=== PATIENT | female | born 1945 | race Caucasian/White ===

== ENCOUNTER → 2018-01-08 | Day surgery (SDC) | payer MEDICARE ==
[2018-01-03 13:30] LABS: BASOPHILS # (AUTO) 0.1 (0.0-0.1); BASOPHILS % 0.5 % (0.0-1.0); EOSINOPHILS # (AUTO) 0.2 (0.0-0.4); EOSINOPHILS % 2.6 % (0.0-6.0); HEMATOCRIT 41.3 % (34.2-44.1); HEMOGLOBIN 12.9 g/dL (12.0-16.0); LYMPHOCYTES # (AUTO) 3.1 (1.0-3.2); LYMPHOCYTES % 33.4 % (18.0-39.1); MEAN CORPUSCULAR HEMOGLOBIN 27.9 pg (28-32); MEAN CORPUSCULAR HGB CONC 31.2 g/dL (31-35); MEAN CORPUSCULAR VOLUME 89.2 fL (81-99); MONOCYTES # (AUTO) 0.7 (0.2-0.8); MONOCYTES % 7.2 % (4.4-11.3); NEUTROPHILS # (AUTO) 5.1 (2.1-6.9); PLATELET COUNT 227 x10e3/uL (140-360); RED BLOOD COUNT 4.63 x10e6/uL (3.6-5.1); RED CELL DISTRIBUTION WIDTH 13.7 % (11.7-14.4)
[~2018-01-08] MED LIST: ASPIRIN81 MG PO; ATORVASTATIN CA20 MG PO; CALTRATE 600 W1 EACH PO; CITALOPRAM HBR20 MG PO; FENTANYL CITRATE/PF 100MCG/2 ML INJ ONE; GABAPENTIN300 MG PO; GLIPIZIDE5 MG PO; LIDOCAINE HCL 2% LOCAL INJ 5 ML SDV VIAL INJ ONE; LISINOPRIL2.5 MG PO; METFORMIN HCL500 MG PO; PROPOFOL IV EMULSION 10 MG/ML 50 ML VIAL ONE; PROPRANOLOL HCL40 MG PO
--- NOTE | 2018-01-08 12:51 | Operative Report ---
DATE OF PROCEDURE: January 08, 2018 REFERRING PHYSICIAN: Dr. Vasile Don. PROCEDURE PERFORMED: Esophagogastroduodenoscopy with esophageal dilatation and biopsies. INDICATIONS FOR ESOPHAGOGASTRODUODENOSCOPY: Dysphagia. MEDICATION: Patient was done under MAC. Please see anesthesiologist's note. PROCEDURE: With patient in the left lateral decubitus position, the flexible fiberoptic Olympus gastroscope was introduced into the esophagus under direct visualization without any difficulty. There was a mild stricture noted at the GE junction, and that was dilated to size 52-[place]. The scope was then advanced with ease into the stomach. Mucosa overlying the antrum revealed some diffuse erythema and moderate edema, and biopsies were obtained and sent to stain for H. pylori. Some patchy nodularity was noted in the midbody greater curvature, and that was biopsied. Pylorus appeared to be of normal contour and shape, was intubated with ease, and the scope was advanced all the way to the 2nd portion of the duodenum. The scope was then withdrawn slowly. Mucosa overlying the proximal 2nd portion and the duodenal bulb appeared to be within normal limits. The scope was then withdrawn back into the stomach and retroflexed. The mucosa overlying the fundus revealed some diffuse erythema. The cardia appeared to be within normal limits. The scope was then straightened out. The stomach was decompressed. The scope was subsequently withdrawn. Patient tolerated procedure well. IMPRESSION: 1. Esophageal stricture at gastroesophageal junction dilated to size 52-[place] Gra[place]eda. 2. Gastritis biopsied. Biopsies sent to stain for H. pylori. 3. Focal nodularity midbody greater curvature, biopsied. PLAN: Follow up histology. Initiate Protonix 40 mg 1 p.o. q.a.m. a.c. Job#: [id number] EV cc:VASILE DON DO
== END | disposition home or self-care (01) ==
LOC: OR 11:33
PROVIDERS: ATTEND Internal Medicine Gastroenterology
DX: K22.2 Esophageal obstruction (principal); K29.50 Unspecified chronic gastritis without bleeding; K31.9 Disease of stomach and duodenum, unspecified; I10 Essential (primary) hypertension; I44.0 Atrioventricular block, first degree; E11.9 Type 2 diabetes mellitus without complications; Z01.810 Encounter for preprocedural cardiovascular examination; Z01.812 Encounter for preprocedural laboratory examination; Z79.82 Long term (current) use of aspirin
CPT/HCPCS: 36415 ×2; 43239; 43450; 82948; 85025; 93005; J2001

== ENCOUNTER → 2018-02-11 | Outpatient (CLI) | payer MEDICARE ==
[~2018-02-11] MED LIST changes: -FENTANYL CITRATE/PF 100MCG/2 ML INJ ONE; -LIDOCAINE HCL 2% LOCAL INJ 5 ML SDV VIAL INJ ONE; -PROPOFOL IV EMULSION 10 MG/ML 50 ML VIAL ONE
--- NOTE | 2018-02-11 12:59 | Diagnostic Imaging Report ---
PROCEDURE:X-RAY MODIFIED BARIUM SWALLOW COMPARISON:None. INDICATIONS:Not provided. DISCUSSION:Fluoroscopic examination was performed in conjunction with speech pathology, during swallowing of a variety of thin and thick liquid consistencies. Examination shows premature spillage over the base of the tongue and vallecula with all consistencies and premature spillage to the perform sinus with thin liquids, and juice portion of mixed, mechanical soft diet. 2 episodes of shallow trace flash penetration with thin liquids was noted. No aspiration. Trace vallecular residue following swallowing of all consistencies. CONCLUSION:Functional swallow. Please see the report from speech pathology for complete details. Surjit Hunter M.D. Dictated by: Surjit Hunter M.D. on 02/11/2018 at 12:59 Electronically approved by: Surjit Hunter M.D. on 02/11/2018 at 12:59
== END ==
LOC: DX 09:39
PROVIDERS: ATTEND Internal Medicine Gastroenterology
DX: R13.10 Dysphagia, unspecified (principal)
CPT/HCPCS: 74230; G8996; G8997; G8998

== ENCOUNTER → 2018-09-02 | Outpatient (CLI) | payer MEDICARE ==
[~2018-09-02] MED LIST changes: +IOPAMIDOL 370 MG/ML 200 ML INFUS..BTL INJ ONE; +SODIUM CHLORIDE 0.9% 50ML 50 ML ONE
[2018-09-02 13:25] LABS: CREATININE, SERUM 0.97 mg/dL (0.57-1.11)
--- NOTE | 2018-09-02 15:08 | Diagnostic Imaging Report ---
EXAMINATION: CT of the abdomen and pelvis with contrast. TECHNIQUE: Spiral CT images of the abdomen and pelvis were performed from the lung bases to the lesser trochanters after the intravenous administration of 100 cc of Isovue 370 and the oral administration of water. Coronal and sagittal reformatted images were obtained. COMPARISON: CT abdomen and pelvis without contrast 12/02/2016 CLINICAL HISTORY:Right and middle abdominal pain for a few days DISCUSSION: ABDOMEN/PELVIS: LOWER THORAX:Calcified granuloma in the lingula (series 2, image 1). No consolidation or effusion. Mild subpleural reticulation likely representing mild fibrotic changes. HEPATOBILIARY: Diffuse hepatic steatosis. Calcified granuloma seen in hepatic segment II and VII/VIII. No focal hepatic lesions. No intra or extrahepatic biliary ductal dilation. GALLBLADDER: No radio-opaque stones or sludge. No wall thickening. SPLEEN: No splenomegaly. Calcified splenic granulomata. PANCREAS: No focal masses or ductal dilatation. 2.3 x 2.9 cm air and debris containing structure between the second portion of the duodenum and the pancreatic head consistent with a duodenal diverticulum (series 2, image 33). ADRENALS: No adrenal nodules. KIDNEYS/URETERS: No hydronephrosis, stones, or solid mass lesions. PELVIC ORGANS/BLADDER: Bladder is unremarkable. Uterus is atrophic. No adnexal masses. PERITONEUM/RETROPERITONEUM: No free air or fluid. LYMPH NODES: No intra-abdominal, retroperitoneal, pelvic or inguinal lymphadenopathy. VESSELS: The celiac trunk, Superior and inferior mesenteric and bilateral renal arteries are patent. Accessory right renal artery to the inferior pole. The portal, superior mesenteric and splenic veins are patent. GI TRACT: No bowel dilation or evidence of obstruction. Moderate amount of retained stool in the colon. Extensive diverticulosis of the distal descending and sigmoid colon, without diverticulitis. Appendix is well identified and normal in caliber. BONES AND SOFT TISSUE: No aggressive lytic lesions. Degenerative changes in the lower thoracic and lumbosacral spine. Tiny fat-containing umbilical hernia. IMPRESSION: 1. No acute abdominal pelvic abnormalities. Specifically, no acute abnormal findings in the right abdomen to explain the patient's pain. 2. Moderate amount of retained stool, which may reflect constipation. No bowel dilation or evidence of obstruction. 3. Diffuse hepatic steatosis. No focal lesions. 4. Prior granulomatous disease. 5. Extensive diverticulosis of the distal descending and sigmoid colon, without diverticulitis Signed by: Tono VangD. on 09/02/2018 3:05 PM
== END ==
LOC: CT 12:13
PROVIDERS: ATTEND Internal Medicine Gastroenterology
DX: R10.9 Unspecified abdominal pain (principal)
CPT/HCPCS: 36415; 74177; 82565; 84520; Q9967

== ENCOUNTER → 2020-04-13 | Outpatient (CLI) | payer MEDICARE ==
[~2020-04-13] MED LIST changes: -IOPAMIDOL 370 MG/ML 200 ML INFUS..BTL INJ ONE; -SODIUM CHLORIDE 0.9% 50ML 50 ML ONE
--- NOTE | 2020-04-13 11:11 | Diagnostic Imaging Report ---
Left hand/finger MRI without contrast. History: Left fifth finger pain. Bruising and swelling. Pain not responding to conservative management Comparison: None Technique: Multiplanar multisequence MRI of the left hand/finger without contrast Findings: Skin thickening with soft tissue edema and abnormal bone marrow edema involving the distal portion of the proximal phalanx of the fifth finger and the middle phalanx of the fifth finger. There is a small joint effusion and synovitis at the fifth finger proximal interphalangeal joint. The findings are best seen on sagittal series 9 image 5 through 7, coronal series 5 image 12 and 13 as well as axial series 6 image 23 through 28. There is what appears to be a fracture involving the distal portion of the proximal phalanx of the fifth finger. The above findings could be posttraumatic or possibly due to an inflammatory arthropathy in the appropriate clinical context. Radiographs of the fifth finger are recommended. Scattered degenerative change about the remaining visualized osseous structures. No ligamentous or tendon tear. The visualized neurovascular bundles are intact. The visualized muscles are normal in size, signal intensity and morphology. Impression: Skin thickening with soft tissue edema and abnormal bone marrow edema involving the distal portion of the proximal phalanx of the fifth finger and the middle phalanx of the fifth finger. There is a small joint effusion and synovitis at the fifth finger proximal interphalangeal joint. There is what appears to be a fracture involving the distal portion of the proximal phalanx of the fifth finger. The above findings could be posttraumatic or possibly due to an inflammatory arthropathy in the appropriate clinical context. Radiographs of the fifth finger are recommended. Signed by: Dr. Vargas Brenner M.D. on 04/13/2020 11:08 AM
== END ==
LOC: MRI 08:34
PROVIDERS: ATTEND Family Medicine
DX: M79.645 Pain in left finger(s) (principal)

== ENCOUNTER → 2022-07-02 | Outpatient (CLI) | payer MEDICARE | LOC: US 08:46 | PROVIDERS: ATTEND Family Medicine | DX: R22.32 Localized swelling, mass and lump, left upper limb (principal) | CPT/HCPCS: 76882 ==

== ENCOUNTER → 2023-04-24 | Outpatient (CLI) | payer MEDICARE | LOC: US 11:45 | PROVIDERS: ATTEND Family Medicine | DX: R10.11 Right upper quadrant pain (principal); D72.829 Elevated white blood cell count, unspecified | CPT/HCPCS: 76705 ==

== ENCOUNTER 2023-04-30 01:01 | Emergency (ER) | payer MEDICARE ==
[~2023-04-30] VITALS: Ht 162.6 cm; Wt 71.7 kg
[2023-04-30 01:36] LABS: BASOPHILS # (AUTO) 0.1 (0.0-0.1); BASOPHILS % 0.5 % (0.0-1.0); EOSINOPHILS # (AUTO) 0.2 (0.0-0.4); EOSINOPHILS % 1.4 % (0.0-6.0); HEMATOCRIT 41.1 % (34.2-44.1); HEMOGLOBIN 12.2 g/dL (12.0-16.0); LYMPHOCYTES # (AUTO) 2.6 (1.0-3.2); LYMPHOCYTES % 15.4 % (18.0-39.1); MEAN CORPUSCULAR HEMOGLOBIN 24.8 pg (28-32); MEAN CORPUSCULAR HGB CONC 29.7 g/dL (31-35); MEAN CORPUSCULAR VOLUME 83.5 fL (81-99); MONOCYTES # (AUTO) 1.3 (0.2-0.8); MONOCYTES % 7.5 % (4.4-11.3); NEUTROPHILS # (AUTO) 12.5 (2.1-6.9); NEUTROPHILS % 74.5 % (38.7-80.0); PLATELET COUNT 228 x10e3/uL (140-360); RED BLOOD COUNT 4.92 x10e6/uL (3.6-5.1)
[2023-04-30 01:37] LABS: CLARITY,URINE CLEAR (CLEAR); COLOR,URINE YELLOW (YELLOW); KETONES,URINE NEGATIVE (NEGATIVE); LEUKOCYTE ESTERASE ,URINE NEGATIVE (NEGATIVE); NITRITE,URINE NEGATIVE (NEGATIVE); PROTEIN,URINE DIPSTICK NEGATIVE (NEGATIVE); URINE UROBILINOGEN 0.2 mg/dL (0.2 - 1)
[2023-04-30 01:41] LABS: BACTERIA,URINE FEW /HPF; EPITHELIAL CELLS,URINE FEW /LPF; RBC,URINE 0-5 /HPF (0-5); WBC,URINE (MAN) 0-5 /HPF (0-5)
[2023-04-30 01:55] LABS: ALBUMIN 3.9 g/dL (3.5-5.0); ALBUMIN/GLOBULIN RATIO 1.3 (0.8-2.0); ANION GAP 16.1 mmol/L (8-16); CALCIUM 9.4 mg/dL (8.4-10.2); CREATININE, SERUM 0.82 mg/dL (0.57-1.11); POTASSIUM 4.1 mmol/L (3.5-5.1)
[2023-04-30] MEDS ORDERED: IOPAMIDOL 370 MG/ML 100 ML INFUS..BTL INJ ONE (02:14)
[2023-04-30] MEDS ORDERED: ONDANSETRON HCL INJ 2MG/ML 2ML 2 MG/ML VIAL IV STA (02:15)
[2023-04-30] MEDS ORDERED: Morphine 4mg INJECTION 4 MG/ML INJ IV STA (02:15)
[2023-04-30] MEDS ORDERED: ULTRAM 50MG50 MG PO (03:48)
[2023-04-30] MEDS ORDERED: ONDANSETRON ODT4 MG PO (03:48)
[2023-04-30 03:49] VITALS: O2SAT 94
== END 2023-04-30 04:00 | disposition home or self-care (01) ==
LOC: ER 01:12
DX: R10.13 Epigastric pain (principal); R11.2 Nausea with vomiting, unspecified; G62.9 Polyneuropathy, unspecified
CPT/HCPCS: 36415; 74177; 80053; 81001; 82550; 83690; 84484; 85025; 93005; 99284; J2270; J2405; Q9967

== ENCOUNTER → 2023-10-31 | Outpatient (REF) | payer MEDICARE ==
[~2023-10-31] MED LIST changes: +ONDANSETRON ODT4 MG PO; +ULTRAM 50MG50 MG PO
== END ==
LOC: CT 11:49
PROVIDERS: ATTEND Internal Medicine
DX: U09.9 Post COVID-19 condition, unspecified (principal)
CPT/HCPCS: 71250

== ENCOUNTER → 2024-08-24 | Outpatient (REF) | payer MEDICARE | LOC: MAMMO 12:42 | PROVIDERS: ATTEND Family Medicine | DX: Z12.31 Encounter for screening mammogram for malignant neoplasm of breast (principal) | CPT/HCPCS: 77067 ==

== ENCOUNTER → 2024-10-12 | Outpatient (REF) | payer MEDICARE | LOC: CT 12:32 | PROVIDERS: ATTEND Internal Medicine | DX: U09.9 Post COVID-19 condition, unspecified (principal) | CPT/HCPCS: 71250 ==

== ENCOUNTER → 2025-01-15 | Outpatient (REF) | payer MEDICARE | LOC: MRI 13:33 | PROVIDERS: ATTEND Family Medicine | DX: R32 Unspecified urinary incontinence (principal); M54.16 Radiculopathy, lumbar region | CPT/HCPCS: 72148 ==